=== PATIENT | male | born 1985 | race Caucasian/White ===

== ENCOUNTER 2016-05-03 14:21 | Emergency (ER) | payer OTHER ==
[2016-05-03 14:34] VITALS: BP 129/59; PULSE 62; O2SAT 95
[2016-05-03] MEDS ORDERED: TORAdol 30 mg Injection IM ONE (14:46)
--- NOTE | 2016-05-03 14:46 | ERPHSYRPT ---
- History of Present Illness Time Seen by Provider: 05/03/16 14:38 Source: patient Exam Limitations: no limitations Patient Subjective Stated Complaint: pt co pain to right testicle since yesterday, pt was seen for same thing on 04/21 and finished antibotics Triage Nursing Assessment: pt alert and limped in, no swelling, resp easy, skin w/d Physician History: The patient is a 30-year-old male who complains of right testicular pain for 1 day. He had identical pain on April 07, 2016 and was seen in this ER for such pain. He had a testicular ultrasound done as well as blood work. The diagnosis was right epididymitis. He was given an injection of Rocephin and prescriptions for doxycycline and Levaquin. He also was given 14 tablet prescription for Proctor. The swelling and pain in his right testicle from March had resolved a few days ago but now has returned. He states his right testicle was swollen yesterday and that he took ibuprofen and now the swelling has resolved. He has not been able to work since April 07. He also states that it is difficult to urinate. He did not follow-up with a family doctor. Timing/Duration: yesterday, gradual onset Activites at Onset: none Quality: stabbing Onset Location: right testicle Pain Radiation: none Severity of Pain-Max: severe Severity of Pain-Current: severe Modifying Factors: Improves With: walking Associated Symptoms: swelling (now resolved) Prior abdominal problems: none Sexual intercourse history: non-contributory Allergies/Adverse Reactions: No Known Drug Allergies Allergy (Verified 05/03/16 14:34) Home Medications: No Home Meds 1 ea UD 04/07/16 [History] Hx Tetanus, Diphtheria Vaccination/Date Given: Yes Hx Influenza Vaccination/Date Given: No Hx Pneumococcal Vaccination/Date Given: No Immunizations Up to Date: Yes - Past Medical History Pertinent Past Medical History: No - Past Surgical History Past Surgical History: Yes Musculoskeletal: Orthopedic Surgery - Social History Smoking Status: Former smoker Exposure to second hand smoke: No Drug Use: marijuana Patient Lives Alone: No - Review of Systems Constitutional: No Fever, No Chills Eyes: No Symptoms Ears, Nose, & Throat: No Symptoms Respiratory: No Cough, No Dyspnea Cardiac: No Chest Pain, No Edema, No Syncope Abdominal/Gastrointestinal: No Abdominal Pain, No Nausea, No Vomiting, No Diarrhea Genitourinary Symptoms: Testicle Pain Musculoskeletal: No Back Pain, No Neck Pain Skin: No Rash Neurological: No Dizziness, No Focal Weakness, No Sensory Changes Psychological: No Symptoms Endocrine: No Symptoms Hematologic/Lymphatic: No Symptoms Immunological/Allergic: No Symptoms All Other Systems: Reviewed and Negative - Nursing Vital Signs Nursing Vital Signs: Initial Vital Signs Temperature 97.4 F Temperature Source Tympanic Pulse Rate 62 Respiratory Rate 16 Blood Pressure 129/59 Pain Intensity 9 - Physical Exam General Appearance: no apparent distress, alert Eye Exam: PERRL/EOMI Ears, Nose, Throat Exam: pharynx normal, moist mucous membranes Neck Exam: normal inspection, supple Respiratory Exam: normal breath sounds, lungs clear Cardiovascular Exam: regular rate/rhythm, No edema Gastrointestinal/Abdomen Exam: soft, No tenderness Rectal Exam: not done Male Genital Exam: epididymal tenderness, testicular tenderness (R), No scrotal swellling Back Exam: normal inspection, No CVA tenderness Extremity Exam: normal inspection, normal range of motion, No pedal edema Neurologic Exam: alert, oriented x 3, cooperative, sensation nml, No motor deficits Skin Exam: normal color, warm, dry, No rash SpO2 Interpretation: normal SpO2: 95 Oxygen Delivery: Room Air - Radiology Ultrasound Exam Right Scrotal Ultrasound: tele radiology report, negative Ordered Tests: Active Orders 24 hr Category Date Time Status TESTICLE [US] Stat Exams 05/03/16 14:46 Ordered BMP Stat Lab 05/03/16 15:05 Received CBC W DIFF Stat Lab 05/03/16 15:05 Completed UA Stat Lab 05/03/16 14:51 Ordered Urine Triage Profile Stat Lab 05/03/16 14:51 Ordered Medication Summary Discontinued Medications Generic Name Dose Route Start Last Admin Trade Name Ricardo PRN Reason Stop Dose Admin Ketorolac Tromethamine 60 mg 05/03/16 14:46 05/03/16 14:54 Toradol 30 Mg Injection IM 05/03/16 14:47 60 mg STAT ONE Administration Ketorolac Tromethamine Confirm 05/03/16 14:51 Toradol 30 Mg Injection Administered 05/03/16 14:52 Dose 60 mg .ROUTE .STK-MED ONE Lab/Rad Data: Laboratory Result Diagrams 05/03/16 15:05 Laboratory Results 05/03/16 Range/Units 15:05 WBC 7.4 (4.0-10.5) K/mm3 RBC 4.63 (4.1-5.6) M/mm3 Hgb 14.2 (12.5-18.0) gm/dl Hct 41.8 L (42-50) % MCV 90.3 (78-100) fl MCH 30.7 (26-32) pg MCHC 34.0 (32-36) g/dl RDW 13.5 (11.5-14.0) % Plt Count 224 (150-450) K/mm3 MPV 11.4 H (6-9.5) fl Gran % 62.2 (36.0-66.0) % Lymphocytes % 28.3 (24.0-44.0) % Monocytes % 5.3 (0.0-12.0) % Eosinophils % 3.8 (0.00-5.0) % Basophils % 0.4 (0.0-0.4) % Basophils # 0.03 (0-0.4) - Progress Progress: improved, pain not gone completely Counseled pt/family regarding: diagnosis, need for follow-up, rad results - Departure Time of Disposition: 16:04 Departure Disposition: Home Clinical Impression: Orchitis of right testicle Condition: Stable Critical Care Time: No Additional Instructions: Take the ciprofloxacin and naproxen as directed. Ice to area as needed. Follow up in 1 to 2 days. Prescriptions: Ciprofloxacin HCl 500 mg [Cipro 500 MG] 1 tab PO BID #20 tablet Naproxen 500 mg PO BID PRN #30 tablet
[2016-05-03] MEDS ORDERED: TORAdol 30 mg Injection ONE (14:51)
[2016-05-03 15:15] LABS: BASOPHIL % 0.4 % (0.0-0.4); Eosinophil % 3.8 % (0.00-5.0); Granulocytes % 62.2 % (36.0-66.0); Lymphocytes % 28.3 % (24.0-44.0); Mean Cell Volume 90.3 fl (78-100); Mean Corpuscular Hemoglobin 30.7 pg (26-32); Mean Platelet Volume 11.4 fl (6-9.5); Monocytes % 5.3 % (0.0-12.0); Platelet Count 224 K/mm3 (150-450); Red Blood Count 4.63 M/mm3 (4.1-5.6); Red Cell Distribution Width 13.5 % (11.5-14.0); White Blood Count 7.4 K/mm3 (4.0-10.5)
[2016-05-03 15:47] LABS: BLOOD UREA NITROGEN 14 mg/dL (9-20); CHLORIDE 106 mEq/L (98-107); Carbon Dioxide 26.5 mEq/L (21-32); Glucose 103 MG/DL (70-110); Potassium 3.8 mEq/L (3.5-5.1); SODIUM 143 mEq/L (136-145)
--- NOTE | 2016-05-03 16:27 | XRAY ---
Indication: Right testicle pain. Two-dimensional testicle sonogram performed. Comparison: April 07, 2016 Both testicles again homogeneous in echogenicity. Normal color perfusion today. The right testicle measures 4.2 x 2.2 x 2.9 cm and the left measures 4.4 x 2.2 x 3.3 cm. Left and right epididymis sonographically normal. No suspicious extratesticular mass or large hydrocele. Impression: Previous right orchitis has resolved. Again negative for intra-/extratesticular mass or torsion.
== END 2016-05-03 16:13 | disposition home or self-care (01) ==
LOC: ED 14:21
DX: N45.2 Orchitis (principal)
CPT/HCPCS: 36415; 76870; 80048; 85025; 99283; J1885

== ENCOUNTER 2018-05-22 03:06 | Emergency (ER) | payer MEDICAID ==
[2018-05-22] MEDS ORDERED: Sodium Chloride 0.9% 1000 ML 1,000 ML IV STA (03:32)
[2018-05-22] MEDS ORDERED: MORPHINE SULFATE 2 MG INJ IV ONE ×2 (03:32→05:47)
[2018-05-22] MEDS ORDERED: MORPHINE SULFATE 2 MG INJ ONE ×2 (03:58→05:49)
[2018-05-22 04:00] LABS: Appearance SLIGHTLY CLOUDY (CLEAR); Bilirubin NEGATIVE (NEGATIVE); Blood NEGATIVE Ery/ul (0-5); Glucose NEGATIVE (NEGATIVE); Ketones NEGATIVE (NEGATIVE); Leukocyte Esterase NEGATIVE (NEGATIVE); Mucus SLIGHT /HPF (NEGATIVE); Nitrite NEGATIVE (NEGATIVE); Protein,Urine Dip NEGATIVE (Negative); Specific Gravity 1.006 (1.005-1.025); Urobilinogen NEGATIVE mg/dL (0-1)
[2018-05-22 04:05] LABS: BASOPHIL % 0.4 % (0.0-0.4); Basophil (Absolute #) 0.05 (0-0.4); Eosinophil % 0.8 % (0.00-5.0); Granulocyte Absolute (ANC) 9.21 (1.4-6.9); Granulocytes % 76.4 % (36.0-66.0); Hematocrit 48.7 % (42-50); Hemoglobin 16.5 gm/dl (12.5-18.0); Lymphocyte (Absolute #) 2.22 (1.0-4.6); Lymphocytes % 18.4 % (24.0-44.0); Mean Cell Volume 92.2 fl (78-100); Mean Corpuscular Hemoglobin 31.3 pg (26-32); Mean Corpuscular Hgb Concent. 33.9 g/dl (32-36); Mean Platelet Volume 11.5 fl (6-9.5); Monocyte (Absolute #) 0.48 (0.0-1.3); Platelet Count 253 K/mm3 (150-450); Red Blood Count 5.28 M/mm3 (4.1-5.6); Red Cell Distribution Width 12.7 % (11.5-14.0); White Blood Count 12.1 K/mm3 (4.0-10.5)
[2018-05-22 04:15] LABS: ALBUMIN 4.7 g/dL (3.5-5.0); ALKALINE PHOSPHATASE 102 U/L (38-126); ANION GAP 18.1 MEQ/L (5-15); BLOOD UREA NITROGEN 16 mg/dL (9-20); CHLORIDE 105 mmol/L (98-107); Calcium 9.5 mg/dL (8.4-10.2); Carbon Dioxide 26 mmol/L (22-30); Creatinine 1 0.85 mg/dL (0.66-1.25); ETHYL ALCOHOL 166 mg/dL (0-10); Glucose 103 mg/dL (74-106); Potassium 4.4 mmol/L (3.5-5.1); SGOT/AST 36 U/L (17-59); SGPT/ALT 28 U/L (0-50); SODIUM 144 mmol/L (137-145); Total Protein 7.7 g/dL (6.3-8.2)
[2018-05-22 04:25] LABS: Amphetamine,Urine NEGATIVE (NEGATIVE); Barbiturate,Urine NEGATIVE (NEGATIVE); Benzodiazepine,Urine NEGATIVE (NEGATIVE); Cocaine,Urine NEGATIVE (NEGATIVE); Methadone,Urine NEGATIVE (NEGATIVE); Opiate,Urine NEGATIVE (NEGATIVE); PCP,Urine NEGATIVE (NEGATIVE); THC,Urine NEGATIVE (NEGATIVE)
[2018-05-22] MEDS ORDERED: Sodium Chloride 0.9% 1000 ML 1,000 ML ONE (04:42)
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
[2018-05-22 05:54] VITALS: BP 139/90; PULSE 87; O2SAT 97
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
== END 2018-05-22 06:15 | disposition home or self-care (01) ==
LOC: ED 03:06
DX: H54.62 Unqualified visual loss, left eye, normal vision right eye (principal); S30.810A Abrasion of lower back and pelvis, initial encounter; S20.419A Abrasion of unspecified back wall of thorax, initial encounter; S00.81XA Abrasion of other part of head, initial encounter; N50.819 Testicular pain, unspecified; M54.5 Low back pain; M54.9 Dorsalgia, unspecified; R10.9 Unspecified abdominal pain; H57.12 Ocular pain, left eye; R07.9 Chest pain, unspecified; R51 Headache; R58 Hemorrhage, not elsewhere classified; Y04.0XXA Assault by unarmed brawl or fight, initial encounter; Z72.0 Tobacco use
CPT/HCPCS: 36415; 70450; 70486; 71260; 72131; 74177; 80053; 80307; 81001; 85025; 96360; 96374; 96375; 96376; 99284; J2270; G0480

== ENCOUNTER 2018-07-30 15:11 | Emergency (ER) | payer MEDICAID ==
[2018-07-30] MEDS ORDERED: Sodium Chloride 0.9% 1000 ML 1,000 ML IV STA (15:34)
[2018-07-30] MEDS ORDERED: TORAdol 30 mg Injection IV ONE (15:34)
[2018-07-30] MEDS ORDERED: Zofran 4 MG/2 ML VIAL IV ONE (15:34)
[2018-07-30] MEDS ORDERED: Sodium Chloride 0.9% 1000 ML 1,000 ML ONE (15:41)
[2018-07-30] MEDS ORDERED: TORAdol 30 mg Injection ONE (15:41)
[2018-07-30] MEDS ORDERED: Zofran 4 MG/2 ML VIAL ONE (15:41)
--- NOTE | 2018-07-30 15:43 | ERPHSYRPT ---
- History of Present Illness Time Seen by Provider: 07/30/18 15:29 Historian: patient Exam Limitations: no limitations Physician History: C/o RLQ abdominal pain, radiating to his right flank, right thigh, and right testicle x 3 weeks. Apparently he vomited few times yesterday, had fever, denies taking any medications today, denies iv drug use recent and past. He also denies injury, no urinary complaints, diarrhea, but c/o numbness in his right toes. Timing/Duration: week(s) (3) Activities at Onset: none Quality: sharpness Abdominal Pain Onset Location: RLQ Pain Radiation: flank, groin, other (right thigh sand testicle) Severity of Pain-Max: severe Severity of Pain-Current: moderate Modifying Factors: Improves With: movement Associated Symptoms: back, nausea, testicular pain, vomiting Previous symptoms: same symptoms as today Allergies/Adverse Reactions: No Known Drug Allergies Allergy (Verified 07/30/18 15:27) Hx Tetanus, Diphtheria Vaccination/Date Given: No Hx Influenza Vaccination/Date Given: No Hx Pneumococcal Vaccination/Date Given: No - Review of Systems Constitutional: Fever Ears, Nose, & Throat: No Symptoms Respiratory: No Symptoms Cardiac: No Symptoms Abdominal/Gastrointestinal: Abdominal Pain, Nausea, Vomiting, No Diarrhea Genitourinary Symptoms: No Symptoms Musculoskeletal: Back Pain Skin: No Symptoms Neurological: Parasthesia All Other Systems: Reviewed and Negative - Past Medical History Pertinent Past Medical History: No Neurological History: No Pertinent History ENT History: No Pertinent History Cardiac History: No Pertinent History Respiratory History: No Pertinent History Endocrine Medical History: No Pertinent History Musculoskeletal History: No Pertinent History GI Medical History: No Pertinent History History: No Pertinent History Male Reproductive Disorders: No Pertinent History Other Medical History: lt leg shattered 2013 has pins and screws - Past Surgical History Past Surgical History: Yes Neuro Surgical History: No Pertinent History Cardiac: No Pertinent History Respiratory: No Pertinent History Gastrointestinal: No Pertinent History Genitourinary: No Pertinent History Musculoskeletal: Orthopedic Surgery Male Surgical History: No Pertinent History - Social History Smoking Status: Current some day smoker How long have you smoked: 11 Exposure to second hand smoke: Yes Drug Use: marijuana Patient Lives Alone: No - Nursing Vital Signs Nursing Vital Signs: Initial Vital Signs Temperature 97.4 F 07/30/18 15:20 Pulse Rate 74 07/30/18 15:20 Respiratory Rate 16 07/30/18 15:20 Blood Pressure 132/85 07/30/18 15:20 O2 Sat by Pulse Oximetry 100 07/30/18 15:20 Pain Scale Pain Intensity [Right Back] 8 Pain Intensity 5 - Physical Exam General Appearance: no apparent distress Eye Exam: eyes nml inspection Ears, Nose, Throat Exam: normal ENT inspection Neck Exam: normal inspection, non-tender, supple, No JVD Respiratory Exam: normal breath sounds, lungs clear Cardiovascular Exam: regular rate/rhythm, normal heart sounds, normal peripheral pulses, No murmur Gastrointestinal/Abdomen Exam: soft, normal bowel sounds, tenderness (RLQ, mod.) , No distention, No mass, No guarding, No ecchymosis, No pulsatile mass, No rebound, No hernia, No organomegaly Male Genitalia Exam: normal genitalia, testicular tenderness (right scrotal tenderness above the testicle, no swelling, edema, no direct testicular tenderness or mass.), No hernia, No testicular mass Extremity Exam: normal inspection, No calf tenderness, No surya's sign, No pedal edema Neurologic Exam: alert, oriented x 3, cooperative, normal mood/affect, other ( straight leg raising negative, DTR equal both sides), No motor deficits Skin Exam: normal color, warm, dry, No rash Lymphatic Exam: No adenopathy SpO2 Interpretation: normal O2 Delivery: Room Air - Course Nursing assessment & vital signs reviewed: Yes - CT Exams Abdomen/Pelvis CT Interpretation: Negative, Tele-radiologist Report, Normal Appendix - Radiology Ultrasound Exam Scrotal Ultrasound: tele radiology report, negative, Other (nonspecific bilateral hydroceles) Ordered Tests: Active Orders 24 hr Category Date Time Status IV Insertion STAT Care 07/30/18 15:34 Active ABDOMEN AND PELVIS W/0 CONTRAS [CT] Stat Exams 07/30/18 15:35 Completed TESTICLE [US] Stat Exams 07/30/18 15:36 Completed CBC W DIFF Stat Lab 07/30/18 15:45 Completed CMP Stat Lab 07/30/18 15:45 Completed LIPASE Stat Lab 07/30/18 15:45 Completed Lactic Acid Stat Lab 07/30/18 15:46 Completed UA W/RFX UR CULTURE Stat Lab 07/30/18 16:00 Completed Urine Triage Profile Stat Lab 07/30/18 16:00 Completed Medication Summary Discontinued Medications Generic Name Dose Route Start Last Admin Trade Name Ricardo PRN Reason Stop Dose Admin Sodium Chloride 1,000 mls @ 999 mls/hr 07/30/18 15:34 07/30/18 15:43 Sodium Chloride 0.9% 1000 Ml IV 07/30/18 16:34 999 mls/hr .Q1H1M STA Administration Sodium Chloride Confirm 07/30/18 15:41 Sodium Chloride 0.9% 1000 Ml Administered 07/30/18 15:42 Dose 1,000 mls @ ud .ROUTE .STK-MED ONE Ketorolac Tromethamine 30 mg 07/30/18 15:34 07/30/18 15:44 Toradol 30 Mg Injection IV 07/30/18 15:35 30 mg STAT ONE Administration Ketorolac Tromethamine Confirm 07/30/18 15:41 Toradol 30 Mg Injection Administered 07/30/18 15:42 Dose 30 mg .ROUTE .STK-MED ONE Ondansetron HCl 4 mg 07/30/18 15:34 07/30/18 15:43 Zofran 4 Mg/2 Ml Vial IV 07/30/18 15:35 4 mg STAT ONE Administration Ondansetron HCl Confirm 07/30/18 15:41 Zofran 4 Mg/2 Ml Vial Administered 07/30/18 15:42 Dose 4 mg .ROUTE .STK-MED ONE Lab/Rad Data: Laboratory Result Diagrams 07/30/18 15:45 07/30/18 15:45 Laboratory Results 07/30/18 07/30/18 07/30/18 Range/Units 16:00 16:00 15:46 WBC (4.0-10.5) K/mm3 RBC (4.1-5.6) M/mm3 Hgb (12.5-18.0) gm/dl Hct (42-50) % MCV (78-100) fl MCH (26-32) pg MCHC (32-36) g/dl RDW (11.5-14.0) % Plt Count (150-450) K/mm3 MPV (6-9.5) fl Gran % (36.0-66.0) % Eos # (Auto) (0-0.5) Absolute Lymphs (auto) (1.0-4.6) Absolute Monos (auto) (0.0-1.3) Lymphocytes % (24.0-44.0) % Monocytes % (0.0-12.0) % Eosinophils % (0.00-5.0) % Basophils % (0.0-0.4) % Absolute Granulocytes (1.4-6.9) Basophils # (0-0.4) Sodium (137-145) mmol/L Potassium (3.5-5.1) mmol/L Chloride (98-107) mmol/L Carbon Dioxide (22-30) mmol/L Anion Gap (5-15) MEQ/L BUN (9-20) mg/dL Creatinine (0.66-1.25) mg/dL Estimated GFR ML/MIN Glucose (74-106) mg/dL Lactic Acid 1.0 (0.4-2.0) Calcium (8.4-10.2) mg/dL Total Bilirubin (0.2-1.3) mg/dL AST (17-59) U/L ALT (0-50) U/L Alkaline Phosphatase (38-126) U/L Serum Total Protein (6.3-8.2) g/dL Albumin (3.5-5.0) g/dL Lipase (23-300) U/L Urine Color YELLOW (YELLOW) Urine Appearance TURBID (CLEAR) Urine pH 7.0 (5-6) Ur Specific Siler 1.016 (1.005-1.025) Urine Protein NEGATIVE (Negative) Urine Ketones NEGATIVE (NEGATIVE) Urine Blood NEGATIVE (0-5) Adis/ul Urine Nitrite NEGATIVE (NEGATIVE) Urine Bilirubin NEGATIVE (NEGATIVE) Urine Urobilinogen NEGATIVE (0-1) mg/dL Ur Leukocyte Esterase NEGATIVE (NEGATIVE) Urine WBC (Auto) NONE (0-5) /HPF Urine RBC (Auto) NONE (0-2) /HPF U Epithel Cells (Auto) NONE (FEW) /HPF Urine Bacteria (Auto) NONE (NEGATIVE) /HPF Amorphous Crystals MODERATE (NEGATIVE) /HPF Urine Culture Reflexed NO (NO) Urine Glucose NEGATIVE (NEGATIVE) mg/dL Urine Opiates Level NEGATIVE (NEGATIVE) Ur Methadone NEGATIVE (NEGATIVE) Urine Barbiturates NEGATIVE (NEGATIVE) Ur Phencyclidine (PCP) NEGATIVE (NEGATIVE) Urine Amphetamine NEGATIVE (NEGATIVE) U Benzodiazepine Level NEGATIVE (NEGATIVE) Urine Cocaine NEGATIVE (NEGATIVE) Urine Marijuana (THC) NEGATIVE (NEGATIVE) 07/30/18 07/30/18 Range/Units 15:45 15:45 WBC 6.5 (4.0-10.5) K/mm3 RBC 4.57 (4.1-5.6) M/mm3 Hgb 14.5 (12.5-18.0) gm/dl Hct 43.2 (42-50) % MCV 94.5 (78-100) fl MCH 31.7 (26-32) pg MCHC 33.6 (32-36) g/dl RDW 13.1 (11.5-14.0) % Plt Count 218 (150-450) K/mm3 MPV 11.2 H (6-9.5) fl Gran % 52.4 (36.0-66.0) % Eos # (Auto) 0.38 (0-0.5) Absolute Lymphs (auto) 2.23 (1.0-4.6) Absolute Monos (auto) 0.44 (0.0-1.3) Lymphocytes % 34.2 (24.0-44.0) % Monocytes % 6.7 (0.0-12.0) % Eosinophils % 5.8 H (0.00-5.0) % Basophils % 0.9 (0.0-0.4) % Absolute Granulocytes 3.41 (1.4-6.9) Basophils # 0.06 (0-0.4) Sodium 141 (137-145) mmol/L Potassium 4.5 (3.5-5.1) mmol/L Chloride 104 (98-107) mmol/L Carbon Dioxide 27 (22-30) mmol/L Anion Gap 14.0 (5-15) MEQ/L BUN 14 (9-20) mg/dL Creatinine 0.78 (0.66-1.25) mg/dL Estimated GFR > 60.0 ML/MIN Glucose 99 (74-106) mg/dL Lactic Acid (0.4-2.0) Calcium 9.9 (8.4-10.2) mg/dL Total Bilirubin 0.30 (0.2-1.3) mg/dL AST 25 (17-59) U/L ALT 20 (0-50) U/L Alkaline Phosphatase 76 (38-126) U/L Serum Total Protein 6.9 (6.3-8.2) g/dL Albumin 4.2 (3.5-5.0) g/dL Lipase 182 (23-300) U/L Urine Color (YELLOW) Urine Appearance (CLEAR) Urine pH (5-6) Ur Specific Siler (1.005-1.025) Urine Protein (Negative) Urine Ketones (NEGATIVE) Urine Blood (0-5) Adis/ul Urine Nitrite (NEGATIVE) Urine Bilirubin (NEGATIVE) Urine Urobilinogen (0-1) mg/dL Ur Leukocyte Esterase (NEGATIVE) Urine WBC (Auto) (0-5) /HPF Urine RBC (Auto) (0-2) /HPF U Epithel Cells (Auto) (FEW) /HPF Urine Bacteria (Auto) (NEGATIVE) /HPF Amorphous Crystals (NEGATIVE) /HPF Urine Culture Reflexed (NO) Urine Glucose (NEGATIVE) mg/dL Urine Opiates Level (NEGATIVE) Ur Methadone (NEGATIVE) Urine Barbiturates (NEGATIVE) Ur Phencyclidine (PCP) (NEGATIVE) Urine Amphetamine (NEGATIVE) U Benzodiazepine Level (NEGATIVE) Urine Cocaine (NEGATIVE) Urine Marijuana (THC) (NEGATIVE) - Progress Progress: improved Progress Note: 07/30/18 17:03 Pt was informed about his results, he is being discharged advising to rest x 3- 4 days, apply moist heat to his painful muscles, and follow up with his physician next week. Counseled pt/family regarding: lab results, diagnosis, need for follow-up, rad results - Departure Departure Disposition: Home Clinical Impression: Sciatica Qualifiers: Laterality: right Qualified Code(s): M54.31 - Sciatica, right side Condition: Stable Critical Care Time: No Instructions: Low Back Pain (DC), Sciatica (DC) Additional Instructions: Rest x 3-4 days, apply moist heat to back, and follow up with your physician in 1 week, return if severe pain, sudden leg weakness, numbness, loss of bowel, bladder control! Prescriptions: Cyclobenzaprine HCl 10 mg [Cyclobenzaprine 10 MG] 10 mg PO TID #30 tablet Methylprednisolone Packet [Medrol Dosepack] 4 mg PO UD #1 packet Tramadol HCl 50 mg [Ultram 50 mg] 50 mg PO Q6H PRN #10 tablet PRN Reason: Pain
[2018-07-30 15:49] LABS: BASOPHIL % 0.9 % (0.0-0.4); Basophil (Absolute #) 0.06 (0-0.4); Eosinophil % 5.8 % (0.00-5.0); Eosinophil (Absolute #) 0.38 (0-0.5); Granulocyte Absolute (ANC) 3.41 (1.4-6.9); Granulocytes % 52.4 % (36.0-66.0); Hematocrit 43.2 % (42-50); Hemoglobin 14.5 gm/dl (12.5-18.0); Lymphocyte (Absolute #) 2.23 (1.0-4.6); Lymphocytes % 34.2 % (24.0-44.0); Mean Cell Volume 94.5 fl (78-100); Mean Corpuscular Hemoglobin 31.7 pg (26-32); Mean Corpuscular Hgb Concent. 33.6 g/dl (32-36); Mean Platelet Volume 11.2 fl (6-9.5); Monocyte (Absolute #) 0.44 (0.0-1.3); Monocytes % 6.7 % (0.0-12.0); Platelet Count 218 K/mm3 (150-450); Red Blood Count 4.57 M/mm3 (4.1-5.6); Red Cell Distribution Width 13.1 % (11.5-14.0); White Blood Count 6.5 K/mm3 (4.0-10.5)
[2018-07-30 16:01] LABS: ALBUMIN 4.2 g/dL (3.5-5.0); ALKALINE PHOSPHATASE 76 U/L (38-126); BLOOD UREA NITROGEN 14 mg/dL (9-20); CHLORIDE 104 mmol/L (98-107); Calcium 9.9 mg/dL (8.4-10.2); Carbon Dioxide 27 mmol/L (22-30); Creatinine 1 0.78 mg/dL (0.66-1.25); Glucose 99 mg/dL (74-106); LIPASE 182 U/L (23-300); Potassium 4.5 mmol/L (3.5-5.1); SGOT/AST 25 U/L (17-59); SGPT/ALT 20 U/L (0-50); SODIUM 141 mmol/L (137-145); Total Protein 6.9 g/dL (6.3-8.2)
[2018-07-30 16:20] LABS: Amourphous Crystal MODERATE /HPF (NEGATIVE); Appearance TURBID (CLEAR); Bilirubin NEGATIVE (NEGATIVE); Blood NEGATIVE Ery/ul (0-5); Glucose NEGATIVE (NEGATIVE); Ketones NEGATIVE (NEGATIVE); Leukocyte Esterase NEGATIVE (NEGATIVE); Nitrite NEGATIVE (NEGATIVE); Protein,Urine Dip NEGATIVE (Negative); Specific Gravity 1.016 (1.005-1.025); Urobilinogen NEGATIVE mg/dL (0-1)
[2018-07-30 16:27] LABS: Amphetamine,Urine NEGATIVE (NEGATIVE); Barbiturate,Urine NEGATIVE (NEGATIVE); Benzodiazepine,Urine NEGATIVE (NEGATIVE); Cocaine,Urine NEGATIVE (NEGATIVE); Methadone,Urine NEGATIVE (NEGATIVE); Opiate,Urine NEGATIVE (NEGATIVE); PCP,Urine NEGATIVE (NEGATIVE); THC,Urine NEGATIVE (NEGATIVE)
--- NOTE | 2018-07-30 16:41 | XRAY ---
Indication: Right lower quadrant pain. Nausea and vomiting. Multiple contiguous axial images obtained through the abdomen and pelvis without contrast as ordered. Comparison: May 22, 2018. Lung bases demonstrates minimal bibasilar dependent atelectasis. No infiltrate or effusion. Heart is not enlarged. Stomach is distended with food/fluid. Noncontrasted stomach and bowel loops appear nonobstructed. Normal appendix. No free fluid/air. There is now mild diffuse scattered colonic fecal debris throughout. Gallbladder contracted without gallstones. Stable calcified splenic granulomas and small bilateral adrenal adenomas. Nonobstructing punctate left lower renal calculus not seen on previous contrasted exam. Remaining visualized liver, gallbladder, pancreas, spleen, adrenal glands, kidneys, ureters, bladder, and aorta appear unremarkable for noncontrast exam. Osseous structures intact. No ventral or inguinal hernias. Impression: 1. New mild diffuse fecal stasis without obstruction. 2. Nonobstructing left renal micro-calculus. 3. Stable calcified splenic granulomas and small bilateral adrenal adenomas. 4. Remaining CT abdomen/pelvis without contrast exam is negative. CTDI 13.89
--- NOTE | 2018-07-30 16:42 | XRAY ---
Indication: Right scrotal pain one month. Two-dimensional testicular sonogram performed. Comparison: None Both testicles are homogeneous in echogenicity with normal color perfusion. Right testicle measures 4.8 x 2.9 x 2.3 cm and the left measures 4.3 x 3.0 x 3.0 cm. Left and right epididymis sonographically unremarkable. Tiny nonspecific hydroceles bilaterally. No suspicious extratesticular mass. Impression: Tiny nonspecific bilateral hydroceles. Remaining testicular sonogram is negative.
[2018-07-30 17:23] VITALS: BP 115/74; PULSE 68; O2SAT 97
== END 2018-07-30 17:32 | disposition home or self-care (01) ==
LOC: ED 15:11
DX: M54.31 Sciatica, right side (principal); Z79.899 Other long term (current) drug therapy
CPT/HCPCS: 36000; 36415; 74176; 76870; 80053; 80307; 81001; 83605; 83690; 85025; 96360; 96374; 96375; 99284; J1885; J2405